=== PATIENT | female | born 1990 | race Caucasian/White ===

== ENCOUNTER 2017-01-19 14:46 | Emergency (ER) | payer OTHER, MEDICAID ==
[~2017-01-19] VITALS: Ht 175.3 cm; Wt 98.9 kg
[~2017-01-19 14:46] MED LIST: ACHD5005 PO; CPH250CIP PO; IBP600T1 PO; LBT200T PO; PNV1TABL9 PO; PRNMV1T PO
[2017-01-19 15:36] LABS: BILIRUBIN,URINE NEGATIVE (NEGATIVE); KETONES,URINE NEGATIVE (NEGATIVE); LEUKOCYTE ESTERASE ,URINE 1+ (NEGATIVE); NITRITE,URINE NEGATIVE (NEGATIVE); PH,URINE 6 (5-9); PROTEIN,URINE NEGATIVE (NEGATIVE); UROBILINOGEN,URINE NORMAL (NORMAL)
[2017-01-19 15:57] LABS: BASOPHILS % (AUTO) 0 % (0-10); EOSINOPHILS % (AUTO) 0 % (0-10); LYMPHOCYTES # (AUTO) 1.7 X 10^3 (1.0-4.0); LYMPHOCYTES % (AUTO) 12 % (12-44); MEAN CORPUSCULAR HEMOGLOBIN 29 PG (25-34); MEAN CORPUSCULAR HGB CONC 35 G/DL (32-36); MEAN CORPUSCULAR VOLUME 83 FL (80-99); MEAN PLATELET VOLUME 10.1 FL (7.4-10.4); MONOCYTES # (AUTO) 0.5 X 10^3 (0.0-1.0); MONOCYTES % (AUTO) 3 % (0-12); NEUTROPHILS # (AUTO) 12.1 X 10^3 (1.8-7.8); NEUTROPHILS % (AUTO) 84 % (42-75); PLATELET COUNT 240 10^3/uL (130-400); RED BLOOD COUNT 4.32 10^6/uL (4.35-5.85); RED CELL DISTRIBUTION WIDTH 13.2 % (10.0-14.5); WHITE BLOOD COUNT 14.3 10^3/uL (4.3-11.0)
[2017-01-19 16:15] LABS: ALANINE AMINOTRANSFERASE 10 U/L (0-55); ALBUMIN 3.4 GM/DL (3.2-4.5); ANION GAP 9 MMOL/L (5-14); ASPARTATE AMINO TRANSFERASE 9 U/L (5-34); BILIRUBIN,TOTAL 0.3 MG/DL (0.1-1.0); BLOOD UREA NITROGEN 6 MG/DL (7-18); BUN/CREATININE RATIO 11; CARBON DIOXIDE 20 MMOL/L (21-32); CHLORIDE 107 MMOL/L (98-107); CREATININE SERUM 0.54 MG/DL (0.60-1.30); GFR ESTIMATED > 60; GLUCOSE 123 MG/DL (70-105); POTASSIUM 3.4 MMOL/L (3.6-5.0); SODIUM 136 MMOL/L (135-145); TOTAL PROTEIN 5.8 GM/DL (6.4-8.2)
--- NOTE | 2017-01-19 16:20 | ED GU-Female ---
General Chief Complaint: -Female Stated Complaint: 18 WKS PREG/CRAMPS/LEG SWELLING Nursing Triage Note: PT AMBULATED TO ROOM. PT STATES THAT YESTERDAY AFTERNOON WAS THE LAST TIME SHE FELT HER BABY HAVE MOVEMENT. PT STATES SHE STARTED FELLING MOVEMENTS AT 14 WEEKS GESTATION. PT STATES THAT SINCE THIS MORNING PT COMPLAINS OF BILAT LEG SWELLING AND CRAMPING. Nursing Sepsis Screen: No Definite Risk Source: patient, family (mother) Exam Limitations: no limitations History of Present Illness Time seen by provider: 15:20 Initial Comments 26-year-old female patient presents to the emergency department with complaints of not feeling the baby moving since yesterday afternoon. States she has been able to feel movement since approximately 14 weeks gestation. Also complains of lower extremity swelling, lower abdominal cramping, and bilateral groin pain. Groin pain worse with standing for long periods. Denies any vaginal discharge or vaginal bleeding. Denies shortness of air, chest pain, nausea, vomiting, diarrhea. Timing/Duration: yesterday Severity/Quality: cramping Activities at Onset: none Prior Genitourinary Problems: similar symptoms Sexual [place] History: less than 2 months ago, single partner Modifying Factors: Worsens With Other (improvement with elevation of the lower extremities.) Allergies and Home Medications Allergies Coded Allergies: coconut (Verified Allergy, Unknown, 01/19/17) Home Medications Cephalexin 500 Mg Capsule, 500 MG PO TID, #9 Ref 0 Prescribed by: EDISON SEN on 01/19/17 1646 Hydrocodone Bit/Acetaminophen 1 Tab Tab, 1-2 TAB PO Q4H PRN for pain, #20 Prescribed by: LIANET AMOS on 10/02/13 0957 Ibuprofen 600 Mg Tablet, 600 MG PO Q6H PRN for PAIN, #40 Prescribed by: LIANET AMOS on 10/02/13 0958 Labetalol Hcl 200 Mg Tab, 200 MG PO BID, #90 Prescribed by: LIANET AMOS on 10/02/13 0957 Multivit/Min/Fol Ac/Iron/Pren 1 Ea Tab, 1 EA PO DAILY@0700, #60 Prescribed by: LIANET AMOS on 10/02/13 0957 Pnv Cmb#21/Iron/Folic Acid 1 Each Tablet, 1 EACH PO, (Reported) Constitutional: No chills, No dizziness, No fever, No malaise EENTM: no symptoms reported Respiratory: No cough, No dyspnea on exertion, No short of breath Cardiovascular: No chest pain, edema, No palpitations, No syncope Gastrointestinal: see HPI, No constipation, No diarrhea, No loss of appetite, No nausea, No vomiting Genitourinary: denies burning, denies discharge, denies dysuria, denies frequency, denies flank pain, denies hematuria, pain : Yes Expected Date of Delivery: Jun 24, 2017 Musculoskeletal: No back pain Skin: no symptoms reported Psychiatric/Neurological: No Symptoms Reported All Other Systemes Reviewed Negative Unless Noted: Yes (Negative excepted noted.) Past Gowtfkq-Deqche-Tqsaxm Hx Patient Social History Alcohol Use: Denies Use Recreational Drug Use: No Smoking Status: Never a Smoker 2nd Hand Smoke Exposure: No Recent Foreign Travel: No Contact w/Someone Who Travel: No Recent Infectious Disease Expo: No Recent Hopitalizations: No Physical Abuse: No Sexual Abuse: No Immunizations Up To Date Tetanus Booster (TDap): Unknown PED Vaccines UTD: No Seasonal Allergies Seasonal Allergies: No Surgeries History of Surgeries: Yes (breast tumor removed.) Surgeries: Appendectomy, Orthopedic Respiratory History of Respiratory Disorde: No Cardiovascular History of Cardiac Disorders: No Neurological History of Neurological Disord: No Reproductive System : Yes Expected Date of Delivery: Jun 24, 2017 Hx : 3 Hx Para: 1 Hx Total # of Abortions (Spona: 1 Hx Reproductive Disorders: No Female Reproductive Disorders: Ovarian Cyst Genitourinary History of Genitourinary Disor: Yes Genitourinary Disorders: Bladder Infection, UTI-Chronic Gastrointestinal History of Gastrointestinal Di: No Musculoskeletal History of Musculoskeletal Dis: No Endocrine History of Endocrine Disorders: No HEENT History of HEENT Disorders: No Cancer History of Cancer: No Psychosocial History of Psychiatric Problem: Yes Behavioral Health Disorders: ADD/ADHD Suicide Risk Score: 0 Integumentary History of Skin or Integumenta: No Blood Transfusions History of Blood Disorders: No Adverse Reaction to a Blood Tr: No Reviewed Nursing Assessment Reviewed/Agree w Nursing PMH: Yes Family Medical History Significant Family History: No Pertinent Family Hx Family Medial History: Alcoholism 19 FATHER (grandfather) 19 MOTHER (grandfather) Cancer 19 FATHER (grandmother ovarian and uterine) 19 MOTHER (grandmother cancer) Cataract 19 MOTHER (grandmother) Congenital heart disease 19 FATHER (grandfather) Congestive heart failure 19 FATHER (grandfather) Family history: Arthritis 19 FATHER (grandmother) Family history: Cardiovascular disease 19 FATHER (grandfather) Family history: Diabetes mellitus 19 FATHER (grandmother) Family history: Gastrointestinal disease 19 FATHER (grandfather) Family history: Hypertension 19 FATHER (grandfather) Family history: Thyroid disorder 19 MOTHER (mom grandmother) History of - respiratory disease 19 MOTHER (grandmother) History of drug abuse 19 FATHER (father) Hypercholesterolemia 19 FATHER (grandfather) Infertile 19 MOTHER (mother after two couldnt have more r/t thyroid disease) Malignant neoplasm of lung 19 MOTHER (grandmother) Psychotic disorder 19 MOTHER (grandfather) No Family History of: Abdominal aortic aneurysm [place]'s disease Aphasia Cancer of colon Chest pain Cystic fibrosis Dementia Dysphagia Family history: Allergy Family history: Alzheimer's disease Family history: Asthma Family history: Breast disease Family history: Coronary thrombosis Family history: Glaucoma Family history: Osteoporosis Headache Hearing loss Heart disease Hereditary disease History of - anemia History of - disorder Human immunodeficiency virus (HIV) seropositivity Kidney disease Myocardial infarction Parkinson's disease Prostate cancer Seizure disorder Stroke Tuberculosis Visual impairment Physical Exam Vital Signs Vital Sign - Last 12Hours 01/19/17 15:17 Temp 97.3 Pulse 100 Resp 20 B/P (MAP) 137/91 Pulse Ox 98 O2 Delivery Room Air Capillary Refill : Less Than 3 Seconds General Appearance: WD/WN, no apparent distress HEENT: PERRL/EOMI, pharynx normal Neck: supple, normal inspection Cardiovascular: normal peripheral pulses, regular rate, rhythm, no murmur Respiratory: lungs clear, normal breath sounds, no respiratory distress, no accessory muscle use Gastrointestinal: normal bowel sounds, soft, No distended, No guarding, No rebound, tenderness (bilateral groin tender to palpation.), other (fundal height consistent with an 18 wk uterus.) Back: normal inspection, no CVA tenderness Extremities: normal capillary refill, pedal edema (1+ pedal edema bilaterally.) Neurologic/Psychiatric: alert, normal mood/affect, oriented x 3 Skin: normal color, warm/dry Progress/Results/Core Measures Results/Orders Lab Results Laboratory Tests Test 01/19/17 15:25 01/19/17 15:47 Range/Units Urine Color YELLOW Urine Clarity CLEAR Urine pH 6 5-9 Urine Specific [place] 1.020 1.016-1.022 Urine Protein NEGATIVE NEGATIVE Urine Glucose (UA) NEGATIVE NEGATIVE Urine Ketones NEGATIVE NEGATIVE Urine Nitrite NEGATIVE NEGATIVE Urine Bilirubin NEGATIVE NEGATIVE Urine Urobilinogen NORMAL NORMAL MG/DL Urine Leukocyte Esterase 1+ H NEGATIVE Urine RBC (Auto) 1+ H NEGATIVE Urine RBC 2-5 H /HPF Urine WBC 5-10 H /HPF Urine Squamous Epithelial Cells 10-25 H /HPF Urine Crystals NONE /LPF Urine Bacteria LARGE H /HPF Urine Casts NONE /LPF Urine Mucus NEGATIVE /LPF Urine Culture Indicated YES White Blood Count 14.3 H 4.3-11.0 10^3/uL Red Blood Count 4.32 L 4.35-5.85 10^6/uL Hemoglobin 12.6 11.5-16.0 G/DL Hematocrit 36 35-52 % Mean Corpuscular Volume 83 80-99 FL Mean Corpuscular Hemoglobin 29 25-34 PG Mean Corpuscular Hemoglobin Concent 35 32-36 G/DL Red Cell Distribution Width 13.2 10.0-14.5 % Platelet Count 240 130-400 10^3/uL Mean Platelet Volume 10.1 7.4-10.4 FL Neutrophils (%) (Auto) 84 H 42-75 % Lymphocytes (%) (Auto) 12 12-44 % Monocytes (%) (Auto) 3 0-12 % Eosinophils (%) (Auto) 0 0-10 % Basophils (%) (Auto) 0 0-10 % Neutrophils # (Auto) 12.1 H 1.8-7.8 X 10^3 Lymphocytes # (Auto) 1.7 1.0-4.0 X 10^3 Monocytes # (Auto) 0.5 0.0-1.0 X 10^3 Eosinophils # (Auto) 0.0 0.0-0.3 10^3/uL Basophils # (Auto) 0.0 0.0-0.1 10^3/uL Neutrophils % (Manual) 87 % Lymphocytes % (Manual) 10 % Monocytes % (Manual) 3 % Eosinophils % (Manual) 0 % Basophils % (Manual) 0 % Band Neutrophils 0 % Blood Morphology Comment NORMAL Sodium Level 136 135-145 MMOL/L Potassium Level 3.4 L 3.6-5.0 MMOL/L Chloride Level 107 98-107 MMOL/L Carbon Dioxide Level 20 L 21-32 MMOL/L Anion Gap 9 5-14 MMOL/L Blood Urea Nitrogen 6 L 7-18 MG/DL Creatinine 0.54 L 0.60-1.30 MG/DL Estimat Glomerular Filtration Rate > 60 BUN/Creatinine Ratio 11 Glucose Level 123 H 70-105 MG/DL Calcium Level 9.0 8.5-10.1 MG/DL Total Bilirubin 0.3 0.1-1.0 MG/DL Aspartate Amino Transf (AST/SGOT) 9 5-34 U/L Alanine Aminotransferase (ALT/SGPT) 10 0-55 U/L Alkaline Phosphatase 49 40-136 U/L Total Protein 5.8 L 6.4-8.2 GM/DL Albumin 3.4 3.2-4.5 GM/DL Human Chorionic Gonadotropin, Quant 9860 H <5 MIU/ML My Orders Orders - EDISON SEN Cbc With Automated Diff (01/19/17 15:30) Hcg,Quantitative (01/19/17 15:30) Ua Culture If Indicated (01/19/17 15:30) Urine Culture (01/19/17 15:25) Comprehensive Metabolic Panel (01/19/17 15:57) Manual Differential (01/19/17 15:47) [place] Limited [id number] (01/19/17 15:31) Vital Signs/I&O Vital Sign - Last 12Hours 01/19/17 01/19/17 15:17 17:27 Temp 97.3 97.3 Pulse 100 97 Resp 20 20 B/P (MAP) 137/91 Pulse Ox 98 98 O2 Delivery Room Air Room Air Blood Pressure Mean: 106 Diagnostic Imaging Diagonstic Imaging: Ultrasound Plain Films/CT/US/NM/MRI: pelvis Comments FINDINGS: There is a single live intrauterine with a heart rate of 132 beats per minute. The fetus is in variable presentation. Placenta is anteriorly located without previa. The cervix is closed, measuring 5.2 cm. biometric data was not obtained in this limited examination. The amount of amniotic fluid appears visually appropriate. IMPRESSION: Single live intrauterine with a heart rate of 132 beats per minute. Dictated on workstation # [id number] Reviewed: Reviewed by Me (radiology report reviewed by me) Departure Communication (Admissions) Progress Notes All laboratory findings and diagnostic study findings discussed with the patient. Plan for discharge to home with oral Keflex. Patient instructed to follow-up with Dr. Marte as an outpatient. Return precautions were discussed with the patient. Patient verbalizes understanding and agrees with the treatment plan. Patient case discussed with Dr. Hall, he agrees with the plan of care. Impression Impression: Primary Impression: Urinary tract infection Qualified Codes: N30.00 - Acute cystitis without hematuria Additional Impressions: Bilateral lower extremity edema with 18 completed weeks gestation Disposition: HOME, SELF-CARE Condition: Improved Departure-Patient Inst. Decision time for Depature: 16:45 Referrals: SUSAN MARTE DO (PCP/Family) Primary Care Physician Patient Instructions: Round Ligament Pain, Urinary Tract Infection, Adult (DC) Add. Discharge Instructions: All discharge instructions reviewed with patient and/or family. Voiced understanding. Medications as instructed. Tylenol extra strength over-the- counter as directed for pain. Elevate the bilateral lower extremities above the level of the heart. Compression socks for swelling. Follow-up with Dr. Marte this week for recheck, call first thing Friday morning for appointment time. Return to the emergency department for worsened pain, swelling, vaginal bleeding, vaginal discharge, fever, vomiting, inability to urinate, chest pain, shortness of breath, seizure, or any other concerns. Scripts Cephalexin (Cephalexin) 500 Mg Capsule 500 MG PO TID, #9 CAP 0 Refills Prov: EDISON SEN 01/19/17 EDISON SEN Jan 19, 2017 16:20
[2017-01-19 16:30] LABS: BAND NEUTROPHILS 0 %; BASOPHILS % (MANUAL) 0 %; EOSINOPHILS % (MANUAL) 0 %; LYMPHOCYTES % (MANUAL) 10 %; NEUTROPHILS % (MANUAL) 87 %
--- NOTE | 2017-01-19 16:32 | Diagnostic Imaging Report ---
INDICATION: Lower abdominal pain. TECHNIQUE: Limited transabdominal imaging of the gravid uterus was performed. FINDINGS: There is a single live intrauterine with a heart rate of 132 beats per minute. The fetus is in variable presentation. Placenta is anteriorly located without previa. The cervix is closed, measuring 5.2 cm. biometric data was not obtained in this limited examination. The amount of amniotic fluid appears visually appropriate. IMPRESSION: Single live intrauterine with a heart rate of 132 beats per minute. Dictated by: Dictated on workstation # [id number]
[2017-01-19] MEDS ORDERED: CEPH500C PO (16:46)
[2017-01-19 17:27] VITALS: BP 138/84
== END 2017-01-19 17:27 | disposition home or self-care (01) ==
LOC: EDUNIT# 14:46 → ER 14:49
DX: O23.42 Unspecified infection of urinary tract in pregnancy, second trimester (principal); O99.89 Other specified diseases and conditions complicating pregnancy, childbirth and the puerperium; R60.0 Localized edema; O99.342 Other mental disorders complicating pregnancy, second trimester; F90.9 Attention-deficit hyperactivity disorder, unspecified type; Z3A.18 18 weeks gestation of pregnancy; Z90.49 Acquired absence of other specified parts of digestive tract; Z80.41 Family history of malignant neoplasm of ovary; Z80.1 Family history of malignant neoplasm of trachea, bronchus and lung; Z82.49 Family history of ischemic heart disease and other diseases of the circulatory system; Z80.49 Family history of malignant neoplasm of other genital organs; Z87.440 Personal history of urinary (tract) infections; Z87.448 Personal history of other diseases of urinary system
CPT/HCPCS: 36415; 76815; 80053; 81000; 84702; 85007; 85027; 87088; 99282

== ENCOUNTER 2022-03-26 14:00 | Emergency (ER) | payer BC, MEDICAID, OTHER ==
[~2022-03-26] VITALS: Ht 175.3 cm; Wt 111.0 kg
[~2022-03-26 14:00] MED LIST changes: +CEPH500C PO
[2022-03-26 14:05] VITALS: BP 138/99
--- NOTE | 2022-03-26 14:08 | ED Abdominal Pain ---
General Chief Complaint: Abdominal/GI Problems Stated Complaint: RIGHT SIDE ABD PAIN History of Present Illness Date Seen by Provider: Mar 26, 2022 Time Seen by Provider: 14:08 Initial Comments Patient with acute onset of right-sided abdominal pain. Patient reports started about an hour and a half prior to arrival. She is mildly nauseated. She is already had a cholecystectomy and appendectomy. The pain is currently in the mid to lower right abdominal area. She denies any fever, chills or urinary sy mptoms. Her last menstrual period was about 2 months ago. She denies fever, chills, diarrhea. She reports a normal bowel movement this morning. Allergies and Home Medications Allergies Coded Allergies: coconut (Verified Allergy, Unknown, 01/19/17) Patient Home Medication List Home Medication List Reviewed: Yes Cephalexin (Cephalexin) 500 Mg Capsule, 500 MG PO TID Prescribed by: EDISON SEN on 01/19/17 1646 Hydrocodone Bit/Acetaminophen (Lortab 5 Mg Tablet) 1 Tab Tab, 1-2 TAB PO Q4H OK N for pain Prescribed by: LIANET AMOS on 10/02/13 0957 Ibuprofen (Motrin Tablet) 600 Mg Tablet, 600 MG PO Q6H PRN for PAIN Prescribed by: LIANET AMOS on 10/02/13 0958 Labetalol Hcl (Labetolol) 200 Mg Tab, 200 MG PO BID Prescribed by: LIANET AMOS on 10/02/13 0957 Multivit/Min/Fol Ac/Iron/Pren (Vitamins ) 1 Ea Tab, 1 EA PO DAILY@0700 Prescribed by: LIANET AMOS on 10/02/13 0957 Ondansetron (Ondansetron Odt) 4 Mg Tab.rapdis, 4 MG PO Q6H PRN for NAUSEA/VOMITING Prescribed by: MOISÉS MCNULTY on 03/26/22 1522 Oxycodone HCl/Acetaminophen (Oxycodone-Acetaminophen 5-325) 5 Mg-325 Mg Tablet, 1 EACH PO Q8H PRN for PAIN-MODERATE Prescribed by: MOISÉS MCNULTY on 03/26/22 1522 Pnv Cmb#21/Iron/Folic Acid ( Complete Caplet) 1 Each Tablet, 1 EACH PO, (Reported) Entered as Reported by: GABRIEL MON on 09/04/131944 Sulfamethoxazole/Trimethoprim (Bactrim Ds Tablet) 1 Each Tablet, 1 EACH PO BID Prescribed by: MOISÉS MCNULTY on 03/26/22 1522 Review of Systems Review of Systems Constitutional: No chills, No fever EENTM: No Symptoms Reported Respiratory: No Symptoms Reported Cardiovascular: No Symptoms Reported Gastrointestinal: See HPI, Abdominal Pain, Nausea Genitourinary: Denies Flank Pain, Denies Pain Musculoskeletal: see HPI Skin: no symptoms reported Psychiatric/Neurological: No Symptoms Reported Past Jgabyvb-Mcqhyw-Pmphfk Hx Immunizations Up To Date Tetanus Booster (TDap): Unknown PED Vaccines UTD: No Seasonal Allergies Seasonal Allergies: No Past Medical History Surgeries: Yes (breast tumor removed.) Appendectomy, Orthopedic Respiratory: No Cardiac: No Neurological: No Reproductive Disorders: No Female Reproductive Disorders: Ovarian Cyst Genitourinary: Yes Bladder Infection, UTI-Chronic Gastrointestinal: No Musculoskeletal: No Endocrine: No HEENT: No Cancer: No Psychosocial: Yes ADD/ADHD Integumentary: No Blood Disorders: No Adverse Reaction/Blood Tranf: No Family Medical History Alcoholism 19 FATHER (grandfather) 19 MOTHER (grandfather) Cancer 19 FATHER (grandmother ovarian and uterine) 19 MOTHER (grandmother cancer) Cataract 19 MOTHER (grandmother) Congenital heart disease 19 FATHER (grandfather) Congestive heart failure 19 FATHER (grandfather) Family history: Arthritis 19 FATHER (grandmother) Family history: Cardiovascular disease 19 FATHER (grandfather) Family history: Diabetes mellitus 19 FATHER (grandmother) Family history: Gastrointestinal disease 19 FATHER (grandfather) Family history: Hypertension 19 FATHER (grandfather) Family history: Thyroid disorder 19 MOTHER (mom grandmother) History of - respiratory disease 19 MOTHER (grandmother) History of drug abuse 19 FATHER (father) Hypercholesterolemia 19 FATHER (grandfather) Infertile 19 MOTHER (mother after two couldnt have more r/t thyroid disease) Malignant neoplasm of lung 19 MOTHER (grandmother) Psychotic disorder 19 MOTHER (grandfather) No Family History of: Abdominal aortic aneurysm [place]'s disease Aphasia Cancer of colon Chest pain Cystic fibrosis Dementia Dysphagia Family history: Allergy Family history: Alzheimer's disease Family history: Asthma Family history: Breast disease Family history: Coronary thrombosis Family history: Glaucoma Family history: Osteoporosis Headache Hearing loss Heart disease Hereditary disease History of - anemia History of - disorder Human immunodeficiency virus (HIV) seropositivity Kidney disease Myocardial infarction Parkinson's disease Prostate cancer Seizure disorder Stroke Tuberculosis Visual impairment No Pertinent Family Hx Physical Exam Vital Signs Capillary Refill : Height/Weight/BMI Height: 5'9" Weight: 218lbs. oz. 98.848788nd; 32.19 BMI Method:Stated General Appearance: mild distress, obese HEENT: PERRL/EOMI Neck: full range of motion, supple Respiratory: lungs clear, normal breath sounds Cardiovascular: normal peripheral pulses, regular rate, rhythm Peripheral Pulses: 2+ Radial Pulses (R), 2+ Radial Pulses (L) Gastrointestinal: soft, tenderness (Right mid) Extremities: normal range of motion, non-tender Back: no CVA tenderness Neurologic/Psychiatric: alert, normal mood/affect, oriented x 3 Skin: normal color, warm/dry Progress/Results/Core Measures Results/Orders Lab Results Laboratory Tests Test 03/26/22 14:05 03/26/22 14:10 Range/Units Urine Color YELLOW Urine Clarity CLOUDY Urine pH 5.5 5-9 Urine Specific [place] >=1.030 1.016-1.022 Urine Protein NEGATIVE NEGATIVE Urine Glucose (UA) NEGATIVE NEGATIVE Urine Ketones NEGATIVE NEGATIVE Urine Nitrite NEGATIVE NEGATIVE Urine Bilirubin NEGATIVE NEGATIVE Urine Urobilinogen 0.2 < = 1.0 MG/DL Urine Leukocyte Esterase NEGATIVE NEGATIVE Urine RBC (Auto) 3+ H NEGATIVE Urine RBC 10-25 H /HPF Urine WBC RARE /HPF Urine Squamous Epithelial Cells 0-2 /HPF Urine Crystals NONE /LPF Urine Bacteria TRACE /HPF Urine Casts NONE /LPF Urine Mucus NEGATIVE /LPF Urine Culture Indicated NO White Blood Count 18.5 H 4.3-11.0 10^3/uL Red Blood Count 4.99 3.80-5.11 10^6/uL Hemoglobin 14.1 11.5-16.0 g/dL Hematocrit 40 35-52 % Mean Corpuscular Volume 81 80-99 fL Mean Corpuscular Hemoglobin 28 25-34 pg Mean Corpuscular Hemoglobin Concent 35 32-36 g/dL Red Cell Distribution Width 12.6 10.0-14.5 % Platelet Count 427 H 130-400 10^3/uL Mean Platelet Volume 9.9 9.0-12.2 fL Immature Granulocyte % (Auto) 1 % Neutrophils (%) (Auto) 79 H 42-75 % Lymphocytes (%) (Auto) 16 12-44 % Monocytes (%) (Auto) 4 0-12 % Eosinophils (%) (Auto) 0 0-10 % Basophils (%) (Auto) 0 0-10 % Neutrophils # (Auto) 14.6 H 1.8-7.8 10^3/uL Lymphocytes # (Auto) 2.9 1.0-4.0 10^3/uL Monocytes # (Auto) 0.7 0.0-1.0 10^3/uL Eosinophils # (Auto) 0.1 0.0-0.3 10^3/uL Basophils # (Auto) 0.1 0.0-0.1 10^3/uL Immature Granulocyte # (Auto) 0.1 0.0-0.1 10^3/uL Neutrophils % (Manual) 84 % Lymphocytes % (Manual) 11 % Monocytes % (Manual) 3 % Eosinophils % (Manual) 1 % Basophils % (Manual) 0 % Band Neutrophils 0 % Blast Cells 1 % Sodium Level 140 135-145 MMOL/L Potassium Level 4.1 3.6-5.0 MMOL/L Chloride Level 104 98-107 MMOL/L Carbon Dioxide Level 22 21-32 MMOL/L Anion Gap 14 5-14 MMOL/L Blood Urea Nitrogen 9 7-18 MG/DL Creatinine 0.94 0.60-1.30 MG/DL Estimat Glomerular Filtration Rate 84 BUN/Creatinine Ratio 10 Glucose Level 104 70-105 MG/DL Calcium Level 9.4 8.5-10.1 MG/DL Corrected Calcium 9.1 8.5-10.1 MG/DL Total Bilirubin 0.4 0.1-1.0 MG/DL Aspartate Amino Transf (AST/SGOT) 16 5-34 U/L Alanine Aminotransferase (ALT/SGPT) 21 0-55 U/L Alkaline Phosphatase 69 40-136 U/L Total Protein 7.4 6.4-8.2 GM/DL Albumin 4.4 3.2-4.5 GM/DL Lipase 35 8-78 U/L My Orders Orders - MOISÉS MCNULTY DO Comprehensive Metabolic Panel (03/26/22 14:11) Lipase (03/26/22 14:11) Ua Culture If Indicated (03/26/22 14:11) Ed Iv/Invasive Line Start (03/26/22 14:11) Cbc With Automated Diff (03/26/22 14:11) Urine Bedside (03/26/22 14:11) Ketorolac Injection (Toradol Injection) (03/26/22 14:24) Metoclopramide Injection (Reglan Injecti (03/26/22 14:26) Manual Differential (03/26/22 14:10) Ct Abdomen/Pelvis Wo (03/26/22 14:37) Fentanyl Inj (Sublimaze Injection) (03/26/22 14:45) Medications Given in ED Current Medications Medications Dose Ordered Sig/Jeff Route Start Time Stop Time Status Last Admin Dose Admin Fentanyl Citrate 50 mcg ONCE ONCE IVP 03/26/22 14:45 03/26/22 14:46 DC 03/26/22 14:46 50 MCG Progress Progress Note : Progress Note Patient with right-sided kidney stone along with 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 Patient has not been seen for teratomas by her SPACE ENGINEER reports that a couple years ago she reports that she does not believe she had any abnormalities. Patient feeling better following treatment. Discussed findings with patient. We will treat her kidney stones. Recommended she follow-up with certified dental assistant for evaluation of her potential teratomas. Patient stable discharged home Departure Impression Primary Impression: Ureteral calculus, right Additional Impression: Teratoma Disposition: HOME, SELF-CARE Condition: Stable Departure-Patient Inst. Referrals: JEAN-PAUL COLLAZO APRN (PCP/Family) Primary Care Physician Patient Instructions: How to Strain Your Urine, Kidney Stone, Adult ED Add. Discharge Instructions: Please call your certified dental assistant to arrange for up follow-up for abnormal imaging on CT. Drink plenty of fluids, return to the ER as needed All discharge instructions reviewed with patient and/or family. Voiced understanding. Scripts Oxycodone HCl/Acetaminophen (Oxycodone-Acetaminophen 5-325) 5 Mg-325 Mg Tablet 1 EACH PO Q8H PRN for PAIN-MODERATE MDD 6 for 3 Days, #10 TAB 0 Refills . Prov: MCNULTY,MOISÉS L DO 03/26/22 Ondansetron (Ondansetron Odt) 4 Mg Tab.rapdis 4 MG PO Q6H PRN for NAUSEA/VOMITING, #20 TAB 0 Refills Prov: MCNULTY,MOISÉS L DO 03/26/22 Sulfamethoxazole/Trimethoprim (Bactrim Ds Tablet) 1 Each Tablet 1 EACH PO BID for 5 Days, #10 TAB Prov: MOISÉS MCNULTY DO 03/26/22 MOISÉS MCNULTY DO Mar 26, 2022 14:08
[2022-03-26] MEDS ORDERED: KETOROLAC 30 MG/ML VIAL IVP STA (14:24)
[2022-03-26] MEDS ORDERED: METOCLOPRAMIDE INJ 10 MG/2 ML (REGLAN) IVP STA (14:26)
[2022-03-26 14:27] LABS: BILIRUBIN,URINE NEGATIVE (NEGATIVE); CLARITY,URINE CLOUDY; COLOR,URINE YELLOW; GLUCOSE, URINE (UA) NEGATIVE (NEGATIVE); KETONES,URINE NEGATIVE (NEGATIVE); LEUKOCYTE ESTERASE ,URINE NEGATIVE (NEGATIVE); NITRITE,URINE NEGATIVE (NEGATIVE); PH,URINE 5.5 (5-9); PROTEIN,URINE NEGATIVE (NEGATIVE)
[2022-03-26 14:31] LABS: BASOPHILS # (AUTO) 0.1 10^3/uL (0.0-0.1); BASOPHILS % (AUTO) 0 % (0-10); EOSINOPHILS # (AUTO) 0.1 10^3/uL (0.0-0.3); EOSINOPHILS % (AUTO) 0 % (0-10); HEMATOCRIT 40 % (35-52); HEMOGLOBIN 14.1 g/dL (11.5-16.0); LYMPHOCYTES # (AUTO) 2.9 10^3/uL (1.0-4.0); LYMPHOCYTES % (AUTO) 16 % (12-44); MEAN CORPUSCULAR HEMOGLOBIN 28 pg (25-34); MEAN CORPUSCULAR HGB CONC 35 g/dL (32-36); MEAN CORPUSCULAR VOLUME 81 fL (80-99); MEAN PLATELET VOLUME 9.9 fL (9.0-12.2); MONOCYTES # (AUTO) 0.7 10^3/uL (0.0-1.0); MONOCYTES % (AUTO) 4 % (0-12); NEUTROPHILS # (AUTO) 14.6 10^3/uL (1.8-7.8); NEUTROPHILS % (AUTO) 79 % (42-75); PLATELET COUNT 427 10^3/uL (130-400); WHITE BLOOD COUNT 18.5 10^3/uL (4.3-11.0)
[2022-03-26 14:34] LABS: BACTERIA,URINE TRACE /HPF; SQUAMOUS EPITHELIAL CELL,UR 0-2 /HPF; WBC,URINE RARE /HPF
[2022-03-26] MEDS ORDERED: fentaNYL INJ 100 MCG/2 ML AMP IVP ONE (14:45)
[2022-03-26 14:59] LABS: BAND NEUTROPHILS 0 %; BASOPHILS % (MANUAL) 0 %; EOSINOPHILS % (MANUAL) 1 %; LYMPHOCYTES % (MANUAL) 11 %; MONOCYTES % (MANUAL) 3 %; NEUTROPHILS % (MANUAL) 84 %
[2022-03-26 15:00] LABS: BLAST CELLS 1 %
[2022-03-26 15:01] LABS: BILIRUBIN,TOTAL 0.4 MG/DL (0.1-1.0); CALCIUM 9.4 MG/DL (8.5-10.1); CREATININE SERUM 0.94 MG/DL (0.60-1.30); POTASSIUM 4.1 MMOL/L (3.6-5.0); TOTAL PROTEIN 7.4 GM/DL (6.4-8.2)
--- NOTE | 2022-03-26 15:01 | Diagnostic Imaging Report ---
EXAMINATION: CT abdomen and pelvis without contrast. TECHNIQUE: Multiple contiguous axial images were obtained through the abdomen and pelvis without the use of intravenous contrast. All CT scans use one or more of the following dose optimizing techniques: Automated exposure control, MA and/or KvP adjustment based on patient size and exam type or iterative reconstruction. HISTORY: Hematuria. COMPARISON: None available. FINDINGS: Limited views of the lower thorax are unremarkable. The liver is normal without focal lesion. There is no biliary ductal dilation. Gallbladder is absent. Pancreas is normal. Spleen is normal. Adrenal glands are normal. There is a 3 mm right distal ureteral stone with moderate right-sided hydroureteronephrosis. There is a nonobstructing left renal stone. Urinary bladder is normal. There are bilateral fat-containing adnexal masses measuring 4.2 x 4.0 cm on the right and 4.1 x 3.6 cm on the left. Bowel is normal in caliber without obstruction or inflammation. No free fluid or air. No abdominal or pelvic lymphadenopathy. Aorta is normal in caliber without aneurysm. There are no suspicious osseous lesions. IMPRESSION: 1. Right distal ureteral stone measuring 3 mm with moderate right-sided hydroureteronephrosis. 2. Bilateral adnexal masses containing fat in keeping with teratomas. Gynecologic evaluation recommended. Dictated by: Dictated on workstation # [id number]
[2022-03-26 15:02] LABS: ALBUMIN 4.4 GM/DL (3.2-4.5)
[2022-03-26] MEDS ORDERED: SULF1TAB38 PO (15:22)
[2022-03-26] MEDS ORDERED: OXYC1TAB11 PO ×2 (15:22→17:31)
[2022-03-26] MEDS ORDERED: ONDA4TAB11 PO (15:22)
== END 2022-03-26 15:32 | disposition home or self-care (01) ==
LOC: EDUNIT# 14:00 → ER FS 14:02
DX: N13.2 Hydronephrosis with renal and ureteral calculous obstruction (principal); D39.8 Neoplasm of uncertain behavior of other specified female genital organs; E66.9 Obesity, unspecified; Z68.32 Body mass index [BMI] 32.0-32.9, adult; Z28.310 Unvaccinated for COVID-19; Z90.49 Acquired absence of other specified parts of digestive tract
CPT/HCPCS: 36415; 74176; 80053; 81000; 83690; 84703; 85007; 85027

== ENCOUNTER → 2022-04-04 | Outpatient (CLI) | payer BC ==
[~2022-04-04] MED LIST changes: +ONDA4TAB11 PO; +OXYC1TAB11 PO; +SULF1TAB38 PO
--- NOTE | 2022-04-04 11:32 | Diagnostic Imaging Report ---
PROCEDURE: Pelvic comp/transvaginal sonogram. TECHNIQUE: Complete transabdominal and transvaginal pelvic ultrasound was performed. In addition, limited pelvic Doppler was performed. INDICATION: Abnormal recent CT demonstrating bilateral adnexal masses, suggestive of teratomas. This study is performed for further evaluation. CORRELATION is made with CT exam from 03/26/2022. Uterus is retroverted measuring 6.4 x 6.3 x 4.9 cm. Endometrium is 6 mm in thickness. No myometrial mass is identified. Right ovary measures 3.9 x 2.4 x 3.3 cm and the left ovary measures 4.7 x 4.0 x 2.8 cm. There is a right adnexal mass measuring 4.0 x 3.7 x 3.4 cm. This is fluid containing centrally with echogenic perimeter, similar to CT. A left adnexal mass measures approximately 4.7 x 4.0 x 2.8 mm. This demonstrates increased echogenicity consistent with fat and correlates with the CT abnormality. There is trace free fluid present. IMPRESSION: Bilateral adnexal masses corresponding to the CT abnormalities. These appear to be fat containing and most consistent with teratomas. No other significant abnormality is detected. Dictated by: Dictated on workstation # [id number]
== END ==
LOC: RAD FS 09:18
PROVIDERS: ATTEND Obstetrics & Gynecology
DX: E27.8 Other specified disorders of adrenal gland (principal)
CPT/HCPCS: 76830; 76856

== ENCOUNTER 2022-05-21 05:18 | Outpatient (CLI) | payer BC ==
[~2022-05-21] VITALS: Ht 175.3 cm; Wt 112.5 kg
[2022-05-21] MEDS ORDERED: MV-M1TAB20 PO (14:04)
== END 2022-05-21 15:30 ==
LOC: PREOP 05:18
PROVIDERS: ATTEND Obstetrics & Gynecology
DX: Z01.818 Encounter for other preprocedural examination (principal)

== ENCOUNTER 2022-05-27 07:00 | Day surgery (SDC) | payer BC ==
[~2022-05-27] VITALS: Ht 175.3 cm; Wt 112.5 kg
[2022-05-27] VITALS (9 sets, daily range): BP systolic 76–135; BP diastolic 41–86
[~2022-05-27 07:00] MED LIST changes: +MV-M1TAB20 PO
[2022-05-27] MEDS ORDERED: BUP/EPI 0.5% 1:200,000 (SENSORCAINE) 30 ML VIAL ONE (07:10)
[2022-05-27] MEDS ORDERED: ONDANSETRON 4 MG/2 ML (SDV) Z0FRAN ONE (07:24)
[2022-05-27] MEDS ORDERED: fentaNYL INJ 100 MCG/2 ML AMP ONE (07:24)
[2022-05-27] MEDS ORDERED: proPOfol 200 MG/20 ML (DIPRIVAN) VIAL IV ONE (07:24)
[2022-05-27] MEDS ORDERED: SEVOFLURANE (ULTANE) 15 ML INHAL SOLN ONE ×2 (07:24→10:00)
[2022-05-27] MEDS ORDERED: MIDAZOLAM 2 MG/2 ML (VERSED) VIAL ONE (07:24)
[2022-05-27] MEDS ORDERED: LIDOCAINE PF 2% 5 ML (XYLOCAINE) VIAL ONE (07:24)
--- NOTE | 2022-05-27 07:27 | History & Physical-Surgical ---
HPO-Surgical History of Present Illness Chief Complaint: Pelvic pain Diagnosis/Surgical Indication: BILATERAL OVARIAN TERATOMAS Procedure: ROBOTIC ASSISTED LAPAROSCOPIC REMOVAL BILATERAL OVARIAN MASSES Date of Surgery: May 27, 2022 Weight (Pounds): 218 Height (Feet): 5 Height (Inches): 9 Allergies and Home Medications Allergies Coded Allergies: bee pollen (Verified Allergy, Unknown, 05/21/22) coconut (Verified Allergy, Unknown, RASH/HIVES/VOMITING, 05/21/22) Patient Home Medication List Home Medication List Reviewed: Yes Mv-Mn/Iron/FA/Herbal Cmplx#190 (Vitamin D3 Complete Caplet) 18 Mg Iron-800 Mcg- 150 Mg Tablet, 1 EACH PO, (Reported) Entered as Reported by: AMOR NELSON on 05/21/22 1404 Discontinued Medications Cephalexin (Cephalexin) 500 Mg Capsule, 500 MG PO TID Discontinued Reason: No Longer Taking Prescribed by: EDISON SEN on 01/19/17 1646 Hydrocodone Bit/Acetaminophen (Lortab 5 Mg Tablet) 1 Tab Tab, 1-2 TAB PO Q4H PRN for pain Discontinued Reason: No Longer Taking Prescribed by: LIANET AMOS on 10/02/13 0957 Ibuprofen (Motrin Tablet) 600 Mg Tablet, 600 MG PO Q6H PRN for PAIN Discontinued Reason: No Longer Taking Prescribed by: LIANET AMOS on 10/02/13 0958 Labetalol Hcl (Labetolol) 200 Mg Tab, 200 MG PO BID Discontinued Reason: No Longer Taking Prescribed by: LIANET AMOS on 10/02/13 0957 Multivit/Min/Fol Ac/Iron/Pren (Vitamins ) 1 Ea Tab, 1 EA PO DAILY@0700 Discontinued Reason: No Longer Taking Prescribed by: LIANET AMOS on 10/02/13 0957 Ondansetron (Ondansetron Odt) 4 Mg Tab.rapdis, 4 MG PO Q6H PRN for NAUSEA/VOMITING Discontinued Reason: No Longer Taking Prescribed by: MOISÉS MCNULTY on 03/26/22 1522 Oxycodone HCl/Acetaminophen (Oxycodone-Acetaminophen 5-325) 5 Mg-325 Mg Tablet, 1 EACH PO Q8H PRN for PAIN-MODERATE Discontinued Reason: No Longer Taking Prescribed by: MOISÉS MCNULTY on 03/26/22 1732 Pnv Cmb#21/Iron/Folic Acid ( Complete Caplet) 1 Each Tablet, 1 EACH PO, (Reported) Discontinued Reason: No Longer Taking Entered as Reported by: GABRIEL MON on 09/04/131944 Sulfamethoxazole/Trimethoprim (Bactrim Ds Tablet) 1 Each Tablet, 1 EACH PO BID Discontinued Reason: No Longer Taking Prescribed by: MOISÉS MCNULTY on 03/26/22 1522 Past Hdripjf-Ckfjsa-Wgtyyl Hx Patient Social History 2nd Hand Smoke Exposure: No Recent Hopitalizations: No Immunizations Up To Date Tetanus Booster (TDap): Unknown Pediatric: No Seasonal Allergies Seasonal Allergies: No Surgeries Yes (breast tumor removed. OVARIAN TUMOR REMOVAL LEFT) Appendectomy, Gallbladder, Orthopedic Respiratory No Cardiovascular No Neurological Yes Headaches /Migraines Reproductive System Hx Reproductive Disorders: No Female Reproductive Disorders: Ovarian Cyst, Polycystic Ovarian Dis Genitourinary Yes Bladder Infection, Kidney Stones, UTI-Chronic Gastrointestinal Yes Gastroesophageal Reflux, Gall Bladder Disease Musculoskeletal No Endocrine History of Endocrine Disorders: No HEENT History of HEENT Disorders: No Cancer No Psychosocial History of Psychiatric Problem: Yes Behavioral Health Disorders: ADD/ADHD, Anxiety Integumentary History of Skin or Integumenta: No Skin/Integumentary Disorders: Eczema, Psoriasis Blood Transfusions History of Blood Disorders: No Adverse Reaction to a Blood Tr: No Family Medical History Significant Family History: No Pertinent Family Hx Family Hx: Alcoholism 19 FATHER (grandfather) 19 MOTHER (grandfather) Cancer 19 FATHER (grandmother ovarian and uterine) 19 MOTHER (grandmother cancer) Cataract 19 MOTHER (grandmother) Congenital heart disease 19 FATHER (grandfather) Congestive heart failure 19 FATHER (grandfather) Family history: Arthritis 19 FATHER (grandmother) Family history: Cardiovascular disease 19 FATHER (grandfather) Family history: Diabetes mellitus 19 FATHER (grandmother) Family history: Gastrointestinal disease 19 FATHER (grandfather) Family history: Hypertension 19 FATHER (grandfather) Family history: Thyroid disorder 19 MOTHER (mom grandmother) History of - respiratory disease 19 MOTHER (grandmother) History of drug abuse 19 FATHER (father) Hypercholesterolemia 19 FATHER (grandfather) Infertile 19 MOTHER (mother after two couldnt have more r/t thyroid disease) Malignant neoplasm of lung 19 MOTHER (grandmother) Psychotic disorder 19 MOTHER (grandfather) No Family History of: Abdominal aortic aneurysm Reyes's disease Aphasia Cancer of colon Chest pain Cystic fibrosis Dementia Dysphagia Family history: Allergy Family history: Alzheimer's disease Family history: Asthma Family history: Breast disease Family history: Coronary thrombosis Family history: Glaucoma Family history: Osteoporosis Headache Hearing loss Heart disease Hereditary disease History of - anemia History of - disorder Human immunodeficiency virus (HIV) seropositivity Kidney disease Myocardial infarction Parkinson's disease Prostate cancer Seizure disorder Stroke Tuberculosis Visual impairment Exam Vital Signs Capillary Refill : General Appearance: Alert, Oriented X3 HEENT: Atraumatic Respiratory: Clear to Auscultation Cardiovascular: Regular Rate Abdominal: Normal Bowel Sounds Neuro: Normal Gait Psych/Mental Status: Mental Status NL Assessment/Plan Assessment and Plan Diagnosis: Bilateral ovarian solid masses on US and CT Chronic pelvic pain P: RA- removal bilateral ovarian masses, with planned ovarian sparing technique. Discussed with patient possibility of loss of ovaries and hormonal function at 31 yrs old. Admission Diagnosis Diagnosis: Bilateral ovarian solid masses on US and CT Chronic pelvic pain Admission Status: Observation SUSAN MCGRATH DO May 27, 2022 07:27
[2022-05-27] MEDS ORDERED: ONDANSETRON 4 MG/2 ML (SDV) Z0FRAN IV PRN (07:30)
[2022-05-27] MEDS ORDERED: DOCUSATE SODIUM 100 MG (COLACE) CAP PO PRN (07:30)
[2022-05-27] MEDS ORDERED: BENZOCAINE LOZENGES 1 EACH LOZENGE MM PRN (07:30)
[2022-05-27] MEDS ORDERED: ANTACID SUSP 30 ML UDC (MYLANTA) PO PRN (07:30)
[2022-05-27] MEDS ORDERED: SIMETHICONE 80 MG (MYLICON) CHEW PO PRN (07:30)
[2022-05-27] MEDS ORDERED: HYDROcodone/APAP 5 MG/325 MG (LORTAB) TAB PO PRN (07:30)
[2022-05-27] MEDS ORDERED: ZOLPIDEM 5 MG (AMBIEN) TAB PO PRN (07:30)
[2022-05-27] MEDS ORDERED: KETOROLAC 30 MG/ML VIAL IVP PRN (07:30)
[2022-05-27] MEDS ORDERED: ceFAZolin INJECTION 1,000 MG in NS (IVPB) 50 ML IV ONE (07:30)
[2022-05-27] MEDS ORDERED: LACTATED RINGERS 1,000 ML IV SCH (07:30)
[2022-05-27] MEDS: LACTATED RINGERS 1,000 ML IV PRN ×2 (08:05→09:55)
[2022-05-27 08:09] LABS: BASOPHILS % (AUTO) 0 % (0-10); EOSINOPHILS # (AUTO) 0.1 10^3/uL (0.0-0.3); EOSINOPHILS % (AUTO) 1 % (0-10); HEMATOCRIT 43 % (35-52); HEMOGLOBIN 14.6 g/dL (11.5-16.0); LYMPHOCYTES # (AUTO) 2.1 10^3/uL (1.0-4.0); LYMPHOCYTES % (AUTO) 23 % (12-44); MEAN CORPUSCULAR HEMOGLOBIN 29 pg (25-34); MEAN CORPUSCULAR HGB CONC 34 g/dL (32-36); MEAN CORPUSCULAR VOLUME 84 fL (80-99); MEAN PLATELET VOLUME 9.7 fL (9.0-12.2); MONOCYTES # (AUTO) 0.5 10^3/uL (0.0-1.0); MONOCYTES % (AUTO) 6 % (0-12); NEUTROPHILS # (AUTO) 6.4 10^3/uL (1.8-7.8); NEUTROPHILS % (AUTO) 70 % (42-75); PLATELET COUNT 351 10^3/uL (130-400); WHITE BLOOD COUNT 9.2 10^3/uL (4.3-11.0)
--- NOTE | 2022-05-27 08:36 | Discharge Inst-Women's Service ---
Discharge Inst-Women's Serv Depart Medication/Instructions New, Converted or Re-Newed RX: Transmitted to Pharmacy Final Diagnosis PO laparoscopic removal bilateral ovarian masses Problems Reviewed?: Yes Consults/Follow Up Additional Follow Up: Yes Orders/Referrals Dr. Marte in 7-10 days Activity Activity: Activity as Tolerated Driving Instructions: No Driving for 1 Week NO SMOKING: NO SMOKING Nothing Inside Vagina: No Douching, No Orr, No Tampons Diet Discharge Diet: No Restrictions Symptoms to Report to : Bleeding Excessive, Pain Increased, Fever Over 101 Degrees F, Vaginal Bleeding Increase, Questions/Concerns For Any Problems or Questions: Contact Your Physician Skin/Wound Care Infection Signs and Symptoms: Increased Redness, Foul Odor of Wound, Increased Drainage, Skin Itchy or Has a Rash, Increased Swelling, Temperature Above 101 F Operative Area Clean and Dry: Keep Incision Clean/Dry Stitches/Jazmine/Dermabond: Dermabond, Care of Stitches Bathing Instructions: SUSAN Shanks DO May 27, 2022 08:36
[2022-05-27] MEDS ORDERED: DOCU100C37 PO (08:38)
[2022-05-27] MEDS ORDERED: SIME80TA16 PO (08:38)
[2022-05-27] MEDS ORDERED: ACHD5005 PO (08:38)
[2022-05-27] MEDS ORDERED: IBUP-844 PO (08:38)
[2022-05-27] MEDS ORDERED: NEOSTIGMINE (BLOXIVERZ ) 1 MG/1ML 10 ML VIAL ONE (09:45)
[2022-05-27] MEDS ORDERED: ROCURONIUM 50 MG/5 ML (ZEMURON) VIAL IV ONE (09:45)
[2022-05-27] MEDS ORDERED: GLYCOPYRROLATE 0.2 MG/ML (ROBINUL) 2 ML VIAL ONE (09:45)
[2022-05-27] MEDS ORDERED: BUP/EPI 0.5% 1:200,000 (SENSORCAINE) 30 ML VIAL INJ ONE (09:47)
[2022-05-27] MEDS ORDERED: KETOROLAC 30 MG/ML VIAL ONE (10:29)
[2022-05-27] MEDS ORDERED: morphine INJ 10 MG/ML 1ML (SYR OR VIAL) IVP ONE (10:30)
[2022-05-27] MEDS ORDERED: ONDANSETRON 4 MG/2 ML (SDV) Z0FRAN IVP PRN (10:30)
[2022-05-27] MEDS ORDERED: HYDROmorphone 2 MG/ML VIAL (DILAUDID) IV ONE (10:30)
[2022-05-27] MEDS ORDERED: morphine INJ 10 MG/ML 1ML (SYR OR VIAL) ONE (10:36)
--- NOTE | 2022-05-27 21:00 | OPERATIVE REPORT ---
DATE OF SERVICE: 05/27/2022 PREOPERATIVE DIAGNOSIS: A 31-year-old female with bilateral ovarian solid masses. POSTOPERATIVE DIAGNOSIS: A 31-year-old female with bilateral ovarian solid masses. PROCEDURE: Robotic-assisted total laparoscopic right salpingo-oophorectomy and left ovarian cystectomy. SURGEON: Alen Marte DO COURT COMMISSIONER: Genevieve Paredes DNP, who was necessary for manipulation and retraction throughout the procedure. ANESTHESIA: General endotracheal. ESTIMATED BLOOD LOSS: Minimal. URINE OUTPUT: 300 mL clear at the end of the procedure. FLUIDS: 1500 mL lactated Ringer's solution. FINDINGS: Grossly normal-appearing uterus and bilateral fallopian tubes. Grossly normal-appearing cervix and external female genitalia. Both ovaries are grossly enlarged with the right ovary appearing to be multicystic and in a certain longitudinal diameter over 5 cm in length with multiple nodularities and cystic structures that could be appreciated grossly from external appearance. Left ovary appears to be enlarged, approximately 2-3 cm in diameter with one cystic dense lesion noted. SPECIMEN SENT: Left ovarian solid mass and cyst and right ovary and tube. INDICATIONS FOR PROCEDURE: This 31-year-old female is a patient who sought care in my office for chronic pelvic pain and finding of bilateral solid ovarian tumors on CT and followup ultrasound revealed and agreed with this as well. I discussed with the patient removal of both of these masses with the plan for ovarian preservation to avoid hormone replacement therapy. Risks of the procedure were discussed with the patient in detail including risk of bleeding, infection, damage to surrounding structures including but not limited to bowel, bladder, ureter or kidney, possible need for reoperation, the possibility of moving both ovaries and need for hormonal support, going forward risk from anesthesia and even . After everything was discussed with the patient in detail, consent was obtained. The patient was taken to the operating room. DESCRIPTION OF PROCEDURE: Once in the operating room, anesthesia was administered and found to be adequate, was placed in the dorsal lithotomy position, prepped and draped in normal sterile fashion. A timeout was performed and a Joshua catheter was placed using sterile technique. Weighted speculum was inserted into the patient's vagina. A right angle retractor was used to visualize the cervix, which was grasped at 12 o'clock position using a long Allis clamp. I placed a Teleport uterine manipulator to a depth of 8 cm within the uterus deploying the balloon. I removed all the other instruments from the patient's vagina, performed change of gloves and turned my attention to the abdomen, where subcostally at the midclavicular line, I introduced a Veress needle through the skin until intraperitoneal placement was confirmed using a saline drop test and opening pressure of 7 mmHg was noted. I proceeded with CO2 insufflation to a maximum pressure of 15 mmHg, at which point I made an 8 mm infraumbilical incision and direct an 8 mm blunt da Marguerite laparoscopic trocar through the incision until intraperitoneal placement was confirmed using the da Marguerite laparoscope. A brief scan of the upper abdominal anatomy appears to be grossly normal. There is no evidence of damage from my entry site of the head. The patient was placed in steep Trendelenburg where I am able to visualize all my pelvic anatomy as defined in my findings above. I placed two lateral trocars. These were both 8 mm trocars approximately 10 cm lateral to the my infraumbilical trocar. Once both these trocars were in place, I brought in the da Marguerite robot and docked in the appropriate fashion, placing a SynchroSeal device in the left hand and the monopolar monserrat in the right hand. I first decided that the right ovary is likely beyond saving and if I were to incise the capsule of the ovary, I would likely rupture a cyst. At some point due to the patient's concern with recurrence, I decided to just remove the right ovary. This was done by starting at the uteroovarian ligament, which I sealed and transected using the SynchroSeal device and took this across the fallopian tube and down the mesosalpinx amputating the fallopian tube and right ovary at the infundibulopelvic ligament. There was no evidence of bleeding or damage to the surrounding structures in the process of doing this and the pedicle was clean and clear of the ureter, which was identified as I do this dissection as well. On the left side, I made an incision using the monopolar monserrat down to the capsule of the ovary and I am able to shell out this underlying cystic lesion carefully without rupturing the underlying cyst or solid component. Once this was done and this completely shelled out, the planes of the internal parenchyma of the ovary were cauterized using the Bovie cautery to achieve hemostasis. The ovary was then packed using Surgicel to ensure postoperative hemostasis as well. I then undocked the da Marguerite robot and proceeded with the remainder of the case laparoscopically. I copiously irrigated the pelvis using normal saline. Once again, there was no active bleeding noted from any of my dissection planes. I placed both of the ovary on the right and tube as well as the left ovarian cystic mass into an Endopouch bag through an enlarged 12 mm port, which I extended at the umbilicus. Once both of these were in the bag, I have to extend the incision of the fascia as well in order to facilitate delivery through the incision. This was done using straight Guerrero scissors and extension of the skin to approximately 4 cm laterally. I was then able to remove both lesions intact through the umbilicus, after which I released the remainder of the insufflation. The lateral trocars were removed. I then reapproximated the fascia of the infraumbilical defect using 0 Vicryl suture in interrupted fashion. The skin is reapproximated of all 3 incision sites using 4-0 Monocryl in interrupted subcuticular stitches. Dermabond was applied to all 3 incisions. Band-Aids were placed over the incision as well. Kronner uterine manipulator was removed at the end of the procedure as well as Joshua catheter. The patient tolerated the procedure well and was taken to recovery area in stable condition. Lap and sponge counts were correct at the end of procedure, instrument counts were correct as well. Job ID: [id number] DocumentID: [id number] Dictated Date: 05/27/2022 11:42:46 Assistant Golf Professional Date: 05/27/2022 20:59:00 Dictated By: ALEN MARTE DO
--- NOTE | 2022-05-28 09:57 | Anesthesia-General Post-Op ---
General Patient Condition Mental Status/LOC: Same as Preop Cardiovascular: Satisfactory Nausea/Vomiting: Absent Respiratory: Satisfactory Pain: Controlled Complications: Absent Post Op Complications Complications None Follow Up Care/Instructions Patient Instructions None needed. Anesthesia/Patient Condition Patient Condition Patient is doing well, no complaints, stable vital signs, no apparent adverse anesthesia problems. No complications reported per nursing. NATAN LU CRNA May 28, 2022 09:57
[2022-05-28] MEDS ORDERED: IBUPROFEN 600 MG (MOTRIN) TAB PO SCH (10:30)
== END 2022-05-27 13:15 | disposition home or self-care (01) ==
LOC: SDC 07:00 → WS 11:15 → SDC 13:15
PROVIDERS: ATTEND Obstetrics & Gynecology
DX: D39.12 Neoplasm of uncertain behavior of left ovary (principal); D39.11 Neoplasm of uncertain behavior of right ovary; N83.292 Other ovarian cyst, left side; N83.291 Other ovarian cyst, right side; Z28.310 Unvaccinated for COVID-19; E66.9 Obesity, unspecified; Z68.37 Body mass index [BMI] 37.0-37.9, adult
CPT/HCPCS: 36415; 84703; 85025; 86850; 86900; 86901; 87081

== ENCOUNTER → 2022-11-19 | Outpatient (CLI) | payer BC ==
[~2022-11-19] MED LIST changes: +DOCU100C37 PO; +IBUP-844 PO; +SIME80TA16 PO
--- NOTE | 2022-11-19 13:26 | Diagnostic Imaging Report ---
PROCEDURE: Pelvic comp/transvaginal sonogram. TECHNIQUE: Complete transabdominal and transvaginal pelvic ultrasound was performed. In addition, limited pelvic Doppler was performed. INDICATION: Benign neoplasm of the ovaries, follow-up surgery. Correlation is made with prior ultrasound from 04/04/2022. The uterus is retroverted measuring 7.5 x 5.9 x 5.0 cm. Endometrium is 6 mm in thickness. No myometrial mass is identified. Right ovary is surgically absent. Left ovary measures 4.7 x 3.9 x 2.4 cm. Left ovary does contain several cysts. Largest measures approximately 4.5 x 3.1 x 1.9 cm and appears fairly smooth simple. There is blood flow to left ovary. There are cervical nabothian cysts. No free fluid is detected. IMPRESSION: 1. Surgically absent right ovary. Left ovary does contain approximately 4.5 cm simple cyst. Dictated by: Dictated on workstation # [id number]
== END ==
LOC: RAD FS 09:58
PROVIDERS: ATTEND Nurse Practitioner Women's Health
DX: D27.0 Benign neoplasm of right ovary (principal); D27.1 Benign neoplasm of left ovary; Z90.721 Acquired absence of ovaries, unilateral
CPT/HCPCS: 76830; 76856

== ENCOUNTER → 2023-03-06 | Outpatient (CLI) | payer BC ==
--- NOTE | 2023-03-06 15:04 | Diagnostic Imaging Report ---
Indication: Bilateral nipple discharge. Correlation is made with diagnostic mammogram earlier this same day. Sonographic interrogation in the retroareolar regions of both breasts was performed. The right breast shows minimal ductal ectasia but no discrete mass is identified. On the left, there is a tiny cyst approximately 3 mm in size. No solid mass is detected. No concerning sonographic findings are identified. No intraductal mass is detected. IMPRESSION: BI-RADS Category 2 No concerning sonographic findings are identified. ACR BI-RADS Category 2: Benign findings. Result letter will be mailed to the patient. Note: At least 10% of breast cancer is not imaged by mammography. Dictated by: Dictated on workstation # [id number]
--- NOTE | 2023-03-06 15:08 | Diagnostic Imaging Report ---
Indication: Bilateral nipple discharge. No prior studies are available for comparison. 2-D and 3-D bilateral diagnostic mammography was performed with CAD. Both breasts are heterogeneously dense, limiting the sensitivity of mammography. There are benign nodules in the outer portions of both breasts. No spiculated mass or malignant-appearing microcalcifications are identified. The retroareolar regions are unremarkable. Axillae are unremarkable. There is a biopsy marker clip in the right breast. IMPRESSION: BI-RADS Category 0 No mammographic features suspicious for malignancy are identified. Even so, sonographic interrogation of the retroareolar aspects of both breasts is recommended and will be performed today. ACR BI-RADS Category 0: Incomplete. (Needs additional imaging evaluation). Result letter will be mailed to the patient. Note: At least 10% of breast cancer is not imaged by mammography. Dictated by: Dictated on workstation # [id number]
== END ==
LOC: RAD 12:45
PROVIDERS: ATTEND Nurse Practitioner Women's Health
DX: N64.52 Nipple discharge (principal)
CPT/HCPCS: 76642; 77066; G0279; 77062